=== PATIENT | male | born 1960 | race African-American/Black ===

== ENCOUNTER 2022-09-13 12:20 | Emergency (ER) | payer OTHER ==
[~2022-09-13] VITALS: Ht 180.3 cm; Wt 96.0 kg
[2022-09-13] MEDS ORDERED: KETOROLAC TROMETH 60MG/2ML VIAL IM ONE ×2 (14:45)
[2022-09-13] MEDS ORDERED: diphenhdrAMINE HCL 25 MG CAP PO ONE (14:45)
[2022-09-13] MEDS ORDERED: ONDANSETRON ODT 4 MG TAB PO ONE ×2 (14:45)
[2022-09-13] MEDS ORDERED: ZOFR4T PO (16:53)
[2022-09-13] MEDS ORDERED: NAP500T PO (16:53)
[2022-09-13] MEDS ORDERED: NIFE1TAB36 PO (18:22)
[2022-09-13 18:23] VITALS: BP 172/105; PULSE 89; RESP 18; TEMP 98.6; O2SAT 96
== END 2022-09-13 18:26 | disposition home or self-care (01) ==
LOC: ER 12:20
DX: R51.9 Headache, unspecified (principal); M19.90 Unspecified osteoarthritis, unspecified site
CPT/HCPCS: 96372; 99283; J1885; Q0162